=== PATIENT | female | born 1985 | race Caucasian/White ===

== ENCOUNTER 2017-12-13 08:23 | Emergency (ER) | payer OTHER ==
[~2017-12-13] VITALS: Ht 162.6 cm; Wt 114.4 kg
[2017-12-13 08:33] VITALS: BP 153/67
--- NOTE | 2017-12-13 08:46 | NUR ---
ASSUMED PATIENT CARE, CONCUR WITH TRIAGE. NURSING ASSESSMENT COMPLETED.
--- NOTE | 2017-12-13 08:48 | NUR ---
Patient to OF. RN evaluating patient.
--- NOTE | 2017-12-13 09:28 | NUR ---
MD AT BEDSIDE, EVALUATING PATIENT, MSE COMPLETED.
[2017-12-13 09:38] VITALS: BP 125/58
--- NOTE | 2017-12-13 09:40 | NUR ---
DISPO AND MEDICAL DECISION MAKING, DC HOME WITH INSTRUCTIONS AND PRESCRIPTIONS, UNDERSTOOD BY PATIENT WELL, VSWNL. DC HOME AMBULATORY.
== END 2017-12-13 09:40 | disposition home or self-care (01) ==
LOC: MED 08:23
DX: K04.7 Periapical abscess without sinus (principal)
CPT/HCPCS: 99283

== ENCOUNTER 2018-04-28 16:29 | Emergency (ER) | payer OTHER ==
[~2018-04-28] VITALS: Ht 165.1 cm; Wt 99.8 kg
[2018-04-28 17:24] VITALS: BP 147/89
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
[2018-04-28] MEDS: KETOROLAC 30 MG/ML VIAL IM ONE (19:37)
[2018-04-28] MEDS: ACETAMINOPHEN EXTRA STRENGTH 500 MG TAB PO ONE (19:37)
--- NOTE | 2018-04-28 20:04 | NUR ---
Patient discharged with v/s stable. Written and verbal after care instructions given and explained. Patient alert, oriented and verbalized understanding of instructions. Ambulatory with steady gait. All questions addressed prior to discharge. ID band removed. Patient advised to follow up with PMD. Rx of AUGMENTIN, NORCO AND IBURPOFEN given. Patient educated on indication of medication including possible reaction and side effects. Opportunity to ask questions provided and answered.
[2018-04-28 20:07] VITALS: BP 138/89
== END 2018-04-28 20:04 | disposition home or self-care (01) ==
LOC: MED 16:29
DX: K08.89 Other specified disorders of teeth and supporting structures (principal)
CPT/HCPCS: 96372; 99283; C1758; J1885

== ENCOUNTER 2018-09-22 18:34 | Emergency (ER) | payer OTHER ==
[~2018-09-22] VITALS: Ht 162.6 cm; Wt 114.3 kg
[2018-09-22 18:50] VITALS: BP 144/95
--- NOTE | 2018-09-22 18:56 | NUR ---
PT AMBULATES TO BED 6
--- NOTE | 2018-09-22 18:58 | NUR ---
PATIENT PRESENTS TO ED WITH C/O UPPER RIGHT TOOTH PAIN & SWEELING X YESTERDAY. PATIENT STATES PAIN OF 9/10 AT THIS TIME; VSS; PATIENT POSITIONED FOR COMFORT; HOB ELEVATED; BEDRAILS UP X2; BED DOWN. ER MD MADE AWARE OF PT STATUS.
[2018-09-22] MEDS ORDERED: KETOROLAC 60 MG/2 ML VIAL IM ONE (21:25)
[2018-09-22] MEDS ORDERED: CLINDAMYCIN 150 MG CAP PO ONE (21:25)
--- NOTE | 2018-09-22 21:47 | NUR ---
awaiting dc orders from dr thompson
[2018-09-22 22:28] VITALS: BP 144/95
--- NOTE | 2018-09-22 22:28 | NUR ---
Patient discharged with v/s stable. Written and verbal after care instructions given and explained. Patient alert, oriented and verbalized understanding of instructions. Ambulatory with steady gait. All questions addressed prior to discharge. ID band removed. Patient advised to follow up with PMD. Rx of Ibuprofen, clindamycin, and Dale given. Patient educated on indication of medication including possible reaction and side effects. Opportunity to ask questions provided and answered.
== END 2018-09-22 22:28 | disposition home or self-care (01) ==
LOC: MED 18:34
DX: K04.7 Periapical abscess without sinus (principal)
CPT/HCPCS: 96372; 99283; J1885

== ENCOUNTER 2019-05-05 06:13 | Emergency (ER) | payer OTHER ==
[~2019-05-05] VITALS: Ht 165.1 cm; Wt 117.9 kg
[2019-05-05 06:21] VITALS: BP 135/92
--- NOTE | 2019-05-05 06:45 | NUR ---
PT BIB SELF C/O PELVIC OLGUIN X2 DAYS WITH HEMATURIA THIS MORNING AND PRESSURE TO LOWER PELVIC PAIN. +TENDERNESS TO SUPRAPUBIC. PT STATES 7/10 PAIN W/ URINATION. PT ACTING APPROPRIATLY, SPEAKING IN CLEAR AND COMPLETE SENTENCES. PT SITTING UP IN BED TALKING ON CELL PHONE. BREATHING EQUAL AND UNLABORED. SAFETY PRECAUTIONS IN PLACE. HX DENIES
--- NOTE | 2019-05-05 07:11 | NUR ---
Pt report given to BORIS Chu. Patient acting appropriatly, no change in condition at this time. Transfer of care at this time.
[2019-05-05 08:13] LABS: APPEARANCE,URINE CLOUDY (CLEAR); BILIRUBIN,URINE NEGATIVE (NEGATIVE); BLOOD, URINE 3+ (NEGATIVE); COLOR,URINE YELLOW (YELLOW); LEUKOCYTE ESTERASE ,URINE 2+ (NEGATIVE); NITRITE, URINE NEGATIVE (NEGATIVE); UGLUCOSE NEGATIVE (NEGATIVE)
--- NOTE | 2019-05-05 08:34 | NUR ---
Patient appears to be resting comfortably in bed. Vital Signs within normal limits. Denies pain at this time.
[2019-05-05 08:48] VITALS: BP 138/89
[2019-05-05 09:44] LABS: RBC,URINE 11-20 (MOD) /HPF (0-5)
[2019-05-05 09:45] LABS: WBC,URINE 80-100 /HPF (0-5)
== END 2019-05-05 08:48 | disposition home or self-care (01) ==
LOC: MED 06:13
DX: N39.0 Urinary tract infection, site not specified (principal); R03.0 Elevated blood-pressure reading, without diagnosis of hypertension; Z90.49 Acquired absence of other specified parts of digestive tract
CPT/HCPCS: 81001; 81025; 87086; 87186; 99283

== ENCOUNTER 2020-01-09 02:37 | Emergency (ER) | payer OTHER ==
[~2020-01-09] VITALS: Ht 162.6 cm; Wt 118.8 kg
[2020-01-09 02:45] VITALS: BP 116/89
--- NOTE | 2020-01-09 02:45 | NUR ---
TO BED # 06 AMBULATORY
--- NOTE | 2020-01-09 03:05 | NUR ---
34 Y/O FEMALE C/O LOW ABD PAIN WORSE UPON INSPIRATION. DENIES URINARY SYMPTOMS, DENIES FEVER. 8/10 SHARP CONSTANT PAIN. STATES LAST BM WAS TODAY, NORMAL CONSISTENCY. TOOK ALEVE AT 1500 WITH NO PAIN RELIEF. LMP 12/20/2019. ABD SOFT, ROUND, NONTENDER. RR EVEN AND UNLABORED. X1 SIDE RAIL RAISED. BED LOCKED AND IN LOW POSITION. VSS. MEDHX: ASTHMA, ALLERGIES: NKA
[2020-01-09] MEDS ORDERED: KETOROLAC 30 MG/ML VIAL IM ONE (03:20)
[2020-01-09] MEDS ORDERED: HYDROcodone/APAP 5/325 MG 1 TAB TAB PO ONE (03:20)
--- NOTE | 2020-01-09 03:47 | NUR ---
PT RETURN FROM CT
--- NOTE | 2020-01-09 04:30 | NUR ---
PT STATES DECREASE IN PAIN AFTER MEDICATION. 01/10 PAIN
[2020-01-09 05:26] LABS: APPEARANCE,URINE CLEAR (CLEAR); BILIRUBIN,URINE NEGATIVE (NEGATIVE); BLOOD, URINE NEGATIVE (NEGATIVE); COLOR,URINE YELLOW (YELLOW); LEUKOCYTE ESTERASE ,URINE NEGATIVE (NEGATIVE); NITRITE, URINE NEGATIVE (NEGATIVE); PH,URINE 5.5 (5.0-9.0); UGLUCOSE NEGATIVE (NEGATIVE)
--- NOTE | 2020-01-09 06:14 | NUR ---
AWAKE AND ALERT ON CELLPHONE. BED LOCKED AND IN LOW POSITION, X 1 SIDE RAIL RAISED. VSS. WILL CONTINUE TO MONITOR.
[2020-01-09 06:38] VITALS: BP 117/88
== END 2020-01-09 06:39 | disposition home or self-care (01) ==
LOC: MED 02:37
DX: R10.30 Lower abdominal pain, unspecified (principal); J45.909 Unspecified asthma, uncomplicated; Z98.890 Other specified postprocedural states
CPT/HCPCS: 74176; 81003; 81025; 96372; 99284; J1885

== ENCOUNTER 2020-01-11 03:42 | Emergency (ER) | payer OTHER ==
[~2020-01-11] VITALS: Ht 162.6 cm; Wt 118.8 kg
[2020-01-11 03:50] VITALS: BP 136/68
--- NOTE | 2020-01-11 03:50 | NUR ---
TO BED # 04 AMBULATORY
--- NOTE | 2020-01-11 04:10 | NUR ---
34 YO F BIB SELF PRESENTS TO ED C/O 07/10 LEFT HIP PAIN THAT RADIATES INTO LOWER LEFT GROIN AREA X 2 DAYS. PT WAS SEEN X 2 DAYS AGO AND HAD NORMAL RESULTS AND NEGATIVE CT SCAN. PT WAS SENT HOME WITH NAPROXYN AND REPORTS NO RELIEF. DENIES RECENT TRAUMA, INJURY, PAIN/BURNING WITH URINATION. PMH-- DENIES
[2020-01-11 05:15] VITALS: BP 136/68
--- NOTE | 2020-01-11 05:15 | NUR ---
Patient discharged with v/s stable. Written and verbal after care instructions given and explained. Patient alert, oriented and verbalized understanding of instructions. Ambulatory with steady gait. All questions addressed prior to discharge. ID band removed. Patient advised to follow up with PMD. Rx of Tramadol Hcl given. Patient educated on indication of medication including possible reaction and side effects. Opportunity to ask questions provided and answered.
== END 2020-01-11 05:15 | disposition home or self-care (01) ==
LOC: MED 03:42
DX: S96.012A Strain of muscle and tendon of long flexor muscle of toe at ankle and foot level, left foot, initial encounter (principal); R10.9 Unspecified abdominal pain; R11.0 Nausea; R19.7 Diarrhea, unspecified; J45.909 Unspecified asthma, uncomplicated; X58.XXXA Exposure to other specified factors, initial encounter; Y93.89 Activity, other specified; Y92.89 Other specified places as the place of occurrence of the external cause; Y99.8 Other external cause status
CPT/HCPCS: 99283

== ENCOUNTER 2020-02-27 11:18 | Emergency (ER) | payer OTHER ==
[~2020-02-27] VITALS: Ht 165.1 cm; Wt 118.8 kg
[2020-02-27 11:29] VITALS: BP 122/75
[2020-02-27 12:31] LABS: APPEARANCE,URINE CLOUDY (CLEAR); BILIRUBIN,URINE NEGATIVE (NEGATIVE); BLOOD, URINE 3+ (NEGATIVE); COLOR,URINE YELLOW (YELLOW); LEUKOCYTE ESTERASE ,URINE 3+ (NEGATIVE); NITRITE, URINE NEGATIVE (NEGATIVE); PH,URINE 5.5 (5.0-9.0); UGLUCOSE NEGATIVE (NEGATIVE)
[2020-02-27 12:44] LABS: RBC,URINE 20-50 /HPF (0-5); WBC,URINE 20-60 /HPF (0-5)
[2020-02-27 12:45] VITALS: BP 118/68
[2020-02-27 12:45] LABS: URINE AMORPHOUS URATE 1+ /HPF (None Seen)
[2020-02-27] MEDS ORDERED: IBUPROFEN 600 MG TAB PO ONE (12:45)
== END 2020-02-27 12:45 | disposition home or self-care (01) ==
LOC: MED 11:18
DX: N39.0 Urinary tract infection, site not specified (principal); J45.909 Unspecified asthma, uncomplicated
CPT/HCPCS: 81001; 81025; 87086; 99283

== ENCOUNTER 2020-05-25 20:12 | Emergency (ER) | payer OTHER ==
[~2020-05-25] VITALS: Ht 165.1 cm; Wt 122.0 kg
[2020-05-25 20:26] VITALS: BP 132/79
--- NOTE | 2020-05-25 20:33 | NUR ---
PT AMBULATED TO RESTROOM WITH STEADY GAIT. UA CUP GIVEN.
--- NOTE | 2020-05-25 20:37 | NUR ---
PT BACK IN LOBBY.
--- NOTE | 2020-05-25 21:02 | NUR ---
PT AMBULATED TO BED 06
--- NOTE | 2020-05-25 21:05 | NUR ---
PT 35 Y/O FEMALE BIB SELF FOR C/O PAINFUL URINATION X 2 DAYS. PT STATES PAIN 7/10. PT STATES PAIN IS NON RADIATING. PT STATES NO BLOOD NOTED IN URINE. TEMP: 98.7. PT RESPIRATIONS ARE EVEN AND UNLABORED. SKIN IS WARM AND DRY TO TOUCH. PT VSS. BED LOCKED AND IN LOWEST POSITION. MEDHX: ASTHMA ALLERGIES: NKA
[2020-05-25 21:27] VITALS: BP 132/79
--- NOTE | 2020-05-25 21:27 | NUR ---
Patient discharged with v/s stable. Written and verbal after care instructions given and explained. Patient alert, oriented and verbalized understanding of instructions. Ambulatory with steady gait. All questions addressed prior to discharge. ID band removed. Patient advised to follow up with PMD. Rx of PYRIDIUM, CIPRO given. Patient educated on indication of medication including possible reaction and side effects. Opportunity to ask questions provided and answered.
== END 2020-05-25 21:27 | disposition home or self-care (01) ==
LOC: MED 20:12
DX: N39.0 Urinary tract infection, site not specified (principal); J45.909 Unspecified asthma, uncomplicated; O09.10 Supervision of pregnancy with history of ectopic pregnancy, unspecified trimester; Z90.49 Acquired absence of other specified parts of digestive tract
CPT/HCPCS: 99282; 99283

== ENCOUNTER 2020-09-06 17:35 | Emergency (ER) | payer OTHER ==
[~2020-09-06] VITALS: Ht 162.6 cm; Wt 115.7 kg
[2020-09-06 17:40] VITALS: BP 106/75
--- NOTE | 2020-09-06 17:43 | NUR ---
Pt given urine cup, instructed to wait in lobby.
--- NOTE | 2020-09-06 19:27 | NUR ---
PT AMBULATED TO BED 5
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
[2020-09-06] MEDS ORDERED: AZITHROMYCIN 250 MG TAB PO STA (20:28)
[2020-09-06] MEDS ORDERED: cefTRIAXone 250 MG in LIDOCAINE MPF 1% 0.9 ML IM ONE (20:30)
--- NOTE | 2020-09-06 20:37 | NUR ---
Dr. Pearce examining patient.
--- NOTE | 2020-09-06 20:40 | NUR ---
1000MG PO OF ZITHROMAX ADMINISTERED PER ORDER, NADR. 250MG ROCEPHIN/0.9ML OF 1% LIDOCAINE ADMINSITERED IM IN [facility] PER ORDER, NADR. PT TOLERATED WELL.
[2020-09-06] MEDS ORDERED: AZITHROMYCIN 250 MG TAB ONE (20:50)
[2020-09-06] MEDS ORDERED: LIDOCAINE MPF 1% 5 ML ONE (20:50)
[2020-09-06] MEDS ORDERED: cefTRIAXone 250 MG VIAL ONE (20:50)
[2020-09-06 20:57] VITALS: BP 139/89
[2020-09-06 20:57] LABS: APPEARANCE,URINE SL CLOUDY (CLEAR); BILIRUBIN,URINE NEGATIVE (NEGATIVE); BLOOD, URINE 1+ (NEGATIVE); COLOR,URINE RED (YELLOW); LEUKOCYTE ESTERASE ,URINE 1+ (NEGATIVE); NITRITE, URINE NEGATIVE (NEGATIVE); UGLUCOSE NEGATIVE (NEGATIVE)
[2020-09-06 21:14] LABS: CALCIUM OXALATE CRYSTALS,UR 0-10 /HPF (None Seen); URINE AMORPHOUS URATE 1+ /HPF (None Seen)
== END 2020-09-06 20:57 | disposition home or self-care (01) ==
LOC: MED 17:35
DX: N39.0 Urinary tract infection, site not specified (principal); J45.909 Unspecified asthma, uncomplicated
CPT/HCPCS: 81001; 81025; 87086; 96372; 99283; J0696; J2001

== ENCOUNTER 2020-11-07 16:45 | Emergency (ER) | payer OTHER ==
[~2020-11-07] VITALS: Ht 162.6 cm; Wt 113.9 kg
[2020-11-07 16:47] VITALS: BP 156/93
--- NOTE | 2020-11-07 16:50 | NUR ---
Patient ambulated to lobby with steady gait
--- NOTE | 2020-11-07 17:59 | NUR ---
Patient ambulated to bed 12 with steady gait.
--- NOTE | 2020-11-07 18:30 | NUR ---
SEEN BY PEARL OWEN. NO NURSING CARE RENDERED.
[2020-11-07 18:32] VITALS: BP 145/90
--- NOTE | 2020-11-07 18:32 | NUR ---
Patient discharged with v/s stable. Written and verbal after care instructions given and explained. Patient alert, oriented and verbalized understanding of instructions. Ambulatory with steady gait. All questions addressed prior to discharge. ID band removed. Patient advised to follow up with PMD. Rx of Ibuprofen 400mg, Keflex 500mg given. Patient educated on indication of medication including possible reaction and side effects. Opportunity to ask questions provided and answered.
== END 2020-11-07 18:32 | disposition home or self-care (01) ==
LOC: MED 16:45
DX: L03.111 Cellulitis of right axilla (principal); J45.909 Unspecified asthma, uncomplicated; Z90.49 Acquired absence of other specified parts of digestive tract; Z98.890 Other specified postprocedural states
CPT/HCPCS: 99283

== ENCOUNTER 2020-11-09 18:23 | Emergency (ER) | payer OTHER ==
[~2020-11-09] VITALS: Ht 165.1 cm; Wt 113.9 kg
[2020-11-09 19:00] VITALS: BP 158/96
--- NOTE | 2020-11-09 19:20 | NUR ---
PATIENT PRESENTS TO ED WITH C/O RASH WITH DISCOMFORT TO RIGHT CHEST . DENIES N/V/D; SKIN IS PINK/WARM/DRY; AAOX4 WITH EVEN AND STEADY GAIT; LUNGS CLEAR BL; HR EVEN AND REGULAR; PT DENIES ANY FEVER, CP, SOB, OR COUGH AT THIS TIME VSS. ER MD MADE AWARE OF PT STATUS.
[2020-11-09 19:58] VITALS: BP 158/96
== END 2020-11-09 19:58 | disposition home or self-care (01) ==
LOC: MED 18:23
DX: L03.111 Cellulitis of right axilla (principal); J45.909 Unspecified asthma, uncomplicated
CPT/HCPCS: 99283

== ENCOUNTER 2021-01-15 13:26 | Emergency (ER) | payer OTHER ==
[~2021-01-15] VITALS: Ht 165.1 cm; Wt 113.4 kg
[2021-01-15 13:52] VITALS: BP 130/90
--- NOTE | 2021-01-15 14:31 | NUR ---
Patient discharged with v/s stable, AAOX4, IN NAD. Written and verbal after care instructions given and explained. Patient alert, oriented and verbalized understanding of instructions. Ambulatory with steady gait. All questions addressed prior to discharge. ID band removed, NO IV ACCESS THIS VISIT. Patient advised to follow up with PMD. Rx of KEFLEX, ABX OINTMENT given. Patient educated on indication of medication including possible reaction and side effects. Opportunity to ask questions provided and answered. PT IN AGREEMENT WITH PLAN OF CARE.
== END 2021-01-15 14:31 | disposition home or self-care (01) ==
LOC: MED 13:26
DX: L03.114 Cellulitis of left upper limb (principal)
CPT/HCPCS: 90471; 90715; 99283

== ENCOUNTER 2021-05-26 20:10 | Emergency (ER) | payer OTHER ==
[~2021-05-26] VITALS: Ht 165.1 cm; Wt 116.8 kg
[2021-05-26 20:18] VITALS: BP 139/100
--- NOTE | 2021-05-26 20:18 | NUR ---
TO BED AMBULATORY
--- NOTE | 2021-05-26 20:27 | NUR ---
36/F C/O LEFT SIDED GROIN PAIN AND DIARRHEA WHICH STARTED EARLIER TODAY. PT DESCRIBES PAIN SHARP WITH A SCALE OF 10/10. PT DENIES ANY TRAUMA OR HEAVY LIFTING. PT ALSO DENIES FEVER, NASUEA, VOMITING. DENIES PMH NKDA
--- NOTE | 2021-05-26 21:30 | NUR ---
Said examining patient.
--- NOTE | 2021-05-26 21:31 | NUR ---
DR. MOSQUEDA AT BEDSIDE EXAMINING PATIENT
[2021-05-26] MEDS ORDERED: NACL 0.9% 1,000 ML IV ONE (21:35)
--- NOTE | 2021-05-26 22:00 | NUR ---
URINE SAMPLE COLLECTED AND SENT TO LAB
[2021-05-26 22:20] LABS: BASOPHILS # (AUTO) 0.2 K/uL (0.00-0.22); BASOPHILS % (AUTO) 1.8 % (0.0-2.0); EOSINOPHILS # (AUTO) 0.2 K/uL (0-0.4); EOSINOPHILS % (AUTO) 2.6 % (0.0-4.0); HEMATOCRIT 39.2 % (36-48); HEMOGLOBIN 13.3 g/dL (12.0-16.0); LYMPHOCYTES # (AUTO) 3.1 K/uL (2.5-16.5); LYMPHOCYTES % (AUTO) 35.4 % (20.5-51.1); MEAN CORPUSCULAR HEMOGLOBIN 30 pg (27-31); MEAN CORPUSCULAR HGB CONC 34 g/dL (33-37); MEAN CORPUSCULAR VOLUME 87.9 fL (80-94); MONOCYTES # (AUTO) 0.5 K/uL (0.8-1.0); MONOCYTES % (AUTO) 6.1 % (1.7-9.3); NEUTROPHILS # (AUTO) 4.8 K/uL (1.8-7.7); NEUTROPHILS % (AUTO) 54.1 % (42.2-75.2); PLATELET COUNT (AUTO) 314 K/uL (140-450); RED BLOOD CELL COUNT(AUTO) 4.46 MIL/uL (4.20-5.40); RED CELL DISTRIBUTION WIDTH 13.5 % (11.6-13.7); WHITE BLOOD COUNT (AUTO) 8.8 K/uL (4.8-10.8)
[2021-05-26 22:21] LABS: BILIRUBIN,URINE NEGATIVE (NEGATIVE); BLOOD, URINE 3+ (NEGATIVE); LEUKOCYTE ESTERASE ,URINE 1+ (NEGATIVE); NITRITE, URINE NEGATIVE (NEGATIVE); UGLUCOSE NEGATIVE (NEGATIVE)
--- NOTE | 2021-05-26 22:26 | NUR ---
CT AT BEDSIDE Addendum: 05/26/21 at 2237 by DARIUS PT TAKEN TO CT
[2021-05-26 22:29] LABS: APPEARANCE,URINE SLIGHTLY BLOODY (CLEAR); COLOR,URINE SLIGHT BLOODY (YELLOW)
[2021-05-26 22:32] LABS: RBC,URINE TOO NUMEROUS TO COUN /HPF (0-5); WBC,URINE 16-25 (MOD) /HPF (0-5)
--- NOTE | 2021-05-26 22:36 | NUR ---
PT RETURN FROM CT
[2021-05-26 22:46] LABS: ALBUMIN 3.9 g/dL (3.4-5.0); ANION GAP 15.1 (8-16); CARBON DIOXIDE 26.3 mmol/L (21-32); CREATININE 0.8 mg/dL (0.6-1.3); POTASSIUM 3.4 mmol/L (3.5-5.1); TOTAL BILIRUBIN 0.1 mg/dL (0.0-1.0)
[2021-05-26] MEDS ORDERED: CEPH-588 PO (23:35)
[2021-05-26] MEDS ORDERED: IBUP-2213 PO (23:35)
--- NOTE | 2021-05-27 00:21 | NUR ---
Dr. Irving examining patient.
[2021-05-27 00:30] VITALS: BP 139/100
--- NOTE | 2021-05-27 00:30 | NUR ---
Patient discharged with v/s stable. Written and verbal after care instructions given and explained. Patient alert, oriented and verbalized understanding of instructions. Ambulatory with steady gait. All questions addressed prior to discharge. ID band removed. Patient advised to follow up with PMD. Rx of KEFLEX, IBUPROFEN given. Patient educated on indication of medication including possible reaction and side effects. Opportunity to ask questions provided and answered.
== END 2021-05-27 00:30 | disposition home or self-care (01) ==
LOC: MED 20:10
DX: N39.0 Urinary tract infection, site not specified (principal); E87.6 Hypokalemia; Z98.890 Other specified postprocedural states; Z79.899 Other long term (current) drug therapy; Z87.442 Personal history of urinary calculi
CPT/HCPCS: 36415; 80053; 81001; 81025; 83690; 85025; 87086; 99284

== ENCOUNTER 2022-05-13 17:44 | Emergency (ER) | payer OTHER ==
[~2022-05-13] VITALS: Ht 165.1 cm; Wt 114.8 kg
[~2022-05-13 17:44] MED LIST: CEPH-588 PO; IBUP-2213 PO
[2022-05-13 18:20] VITALS: BP 151/93
--- NOTE | 2022-05-13 19:01 | NUR ---
PEARL SCHMITZ examining patient.
[2022-05-13] MEDS ORDERED: KETOROLAC 30 MG/ML VIAL IM ONE (19:15)
--- NOTE | 2022-05-13 19:20 | NUR ---
Patient taken to X-ray via wheel chair.
--- NOTE | 2022-05-13 20:22 | NUR ---
PEARL SCHMITZ spoke with patient to explain results and treatment plans.
[2022-05-13] MEDS ORDERED: IBUP-2218 PO (20:34)
[2022-05-13 20:53] VITALS: BP 142/82
--- NOTE | 2022-05-13 20:53 | NUR ---
Patient discharged with v/s stable. Written and verbal after care instructions given and explained. Patient verbalized understanding. Ambulatory with steady gait. All questions addressed prior to discharge. Advised to follow up with PMD.
== END 2022-05-13 20:53 | disposition home or self-care (01) ==
LOC: MED 17:44
DX: S83.92XA Sprain of unspecified site of left knee, initial encounter (principal); R03.0 Elevated blood-pressure reading, without diagnosis of hypertension; X58.XXXA Exposure to other specified factors, initial encounter; Y93.89 Activity, other specified; Y92.89 Other specified places as the place of occurrence of the external cause; Y99.8 Other external cause status
CPT/HCPCS: 29505; 73562; 96372; 99283; J1885